=== PATIENT | male | born 1970 | race Caucasian/White ===

== ENCOUNTER 2022-05-05 00:14 | Observation (INO) | payer BC, SELFPAY ==
[2022-05-05] VITALS (9 sets, daily range): BP systolic 118–154; BP diastolic 76–96; PULSE 74–98; RESP 10–22; TEMP 36.4–37.3; O2SAT 95–100; BMI 27.4
--- NOTE | ~2022-05-05 | CT_ITS ---
EXAMINATION: CT abdomen pelvis wo con DATE: 05/05/2022 01:18 INDICATION: Left lower quadrant abdominal pain. TECHNIQUE: Computed tomography (CT) of the abdomen and pelvis was performed without intravenous contr ast. Automated exposure control and iterative reconstruction technique were employed. The dose-length product was 426.86 mGy-cm. COMPARISON: None. FINDINGS: The visualized portions of the lung bases demonstrate mild atelectasis. No pleural effusion . The heart size is normal. No pericardial effusion. There are coronary artery calcifications. The li payal and spleen are normal. There are changes of cholecystectomy. The pancreas, adrenal glands, and ri ght kidney are normal. There is a 3 mm stone in left kidney. There is a 2.1 cm mass in left kidney me asuring soft tissue attenuation. There is mild left hydronephrosis. There is a 2 mm stone in proximal left ureter. There are bilateral inguinal hernias containing fat. There are no dilated loops of smita l. The appendix is normal. There are no pathologically enlarged lymph nodes. There is no free intrape ritoneal fluid. There is mild lumbar spondylosis. IMPRESSION: 1. 2 mm stone in proximal left ureter with mild left hydronephrosis. 2. 2.1 cm left kidney mass, which may be a hemorrhagic cyst or neoplasm. Abdomen MRI or CT without an d with contrast is recommended. Reviewed, dictated and finalized at location A. L DEVELOPER IMPRESSION: 1. 2 mm stone in proximal left ureter with mild left hydronephrosis. 2. 2.1 cm left kidney mass, which may be a hemorrhagic cyst or neoplasm. Abdome n MRI or CT without and with contrast is recommended.
--- NOTE | ~2022-05-05 | XR_ITS ---
EXAMINATION: XR abdomen/kub 1V DATE: 05/05/2022 01:34 INDICATION: Kidney stone. TECHNIQUE: A supine view of the abdomen on 2 radiographs was obtained. COMPARISON: CT abdomen and pelvis 05/05/2022 FINDINGS: There are no dilated loops of bowel. Surgical clips in the right upper quadrant are likely from cholecystectomy. There are phleboliths in the pelvis. There is a 2 mm stone in left ureter at L3 -L4. IMPRESSION: 1. 2 mm stone in left ureter at L3-L4. Reviewed, dictated and finalized at location A. ET COMMISSIONER
--- NOTE | ~2022-05-05 | XR_ITS ---
EXAMINATION: XR retrograde pyelo w/stent LT DATE: 05/05/2022 09:48 INDICATION: Left ureteral stone. TECHNIQUE: 6 intraoperative fluoroscopic views of the abdomen and pelvis were obtained. I was not pre sent. Fluoroscopy time was 13 seconds. COMPARISON: CT abdomen and pelvis 05/05/22 FINDINGS: The left-sided retrograde pyelogram is unremarkable. There is a left internal ureteral sten t in expected position. IMPRESSION: 1. Left internal ureteral stent in expected position. Reviewed, dictated and finalized at location A. NICAL MGR
--- NOTE | 2022-05-05 00:15 | ED.ABDPAIN ---
HPI - Abdominal Pain General Chief Complaint: Abdominal Pain Stated Complaint: FLANK/ABD PAIN Source: RN notes reviewed History of Present Illness HPI narrative: Patient presents emergency department from home via EMS for abdominal pain. Patient states that pain began approximately 1 hour prior to arrival. States the pain began suddenly is located in the left side of the abdomen. Pain radiates around to the back is described as sharp and stabbing in nature. He denies any fevers or chills denies any nausea vomiting diarrhea. Denies any previous history of kidney stones. States he not take anything for the pain at home Related Data Allergies Allergy/AdvReac Type Severity Reaction Status Date / Time No Known Allergies Allergy Verified 05/22/20 14:40 Review of Systems Review of Systems: Gen.: Denies fevers or chills ENT: Denies congestion Respiratory: Denies shortness of breath or cough CV: Denies chest pain or palpitations GI: See HPI denies burning, urgency, frequency or hematuria Musculoskeletal: Denies back pain or muscle pain Neuro: Denies numbness, tingling, weakness or focal weakness Skin: Denies rash Except as documented, all other systems reviewed and negative [facility] Past Medical History Medical History (Updated 05/05/22 @ 02:37 by Marbin Cox DO) Asthma Family History Family History (System 05/22/20 @ 14:40 by Ciro Alvarez) Mother Family history of diabetes mellitus in first degree relative Hypertension Father Carcinoma of colon Family history of heart disease in male family member before age 55 Family history of lung cancer Family history of primary malignant neoplasm of liver Grandparent Family history of lung cancer Diabetes mellitus Family history of malignant neoplasm of brain Other Cerebrovascular accident Family history of cardiovascular disease Family history of throat cancer Social History Social History Smoking status: Current every day smoker Alcohol intake: never Exam Narrative: APPEARANCE: No acute distress, nontoxic, resting in bed HEENT: Normocephalic, atraumatic, OMM RESPIRATORY: No respiratory distress, clear to auscultation bilaterally with no rhonchi wheezing or rales CARDIOVASCULAR: RRR s murmur ABDOMINAL: Soft nondistended tender palpation left upper quadrant left lower quadrant no tenderness in right upper quadrant and right lower quadrant no rebound or guarding, left flank tenderness MUSCULOSKELETAl: Moves all extremities. No clubbing, cyanosis or edema. NEURO: Awake and alert. Following commands, speech normal, no focal deficits SKIN:: Warm, dry. Normal Color PSYCHIATRIC: Normal affect/mood Course Course Emergency Course: Patient continues to have pain we will give morphine Called and discussed with Dr. Rubin for urology presentation work-up. With patient's continued pain agrees with plan for admission and consult agrees with Sanjuanita Discussed with Dr. andrew agrees with admission Discussed with patient and family results of workup and diagnosis. Discussed need for admission. Patient and family understand and agree to current treatment plan Vital Signs Vital signs: Vital Signs Temperature 98.0 F 05/05/22 00:10 Respiratory Rate 18 05/05/22 00:10 Blood Pressure 145/76 H 05/05/22 00:10 Pulse Oximetry 100 05/05/22 00:10 Oxygen Delivery Room Air 05/05/22 00:10 Temperature 98.0 F 05/05/22 00:10 Respiratory Rate 18 05/05/22 00:10 Blood Pressure 145/76 H 05/05/22 00:10 Pulse Oximetry 100 05/05/22 00:10 Oxygen Delivery Room Air 05/05/22 00:10 MDM - Abdominal Pain MDM Narrative Medical decision making narrative: Patient presents for left-sided abdominal and flank pain cannot hour prior to arrival work-up UTI present kidney stone 2 mm on left side discussed with urology at this time will admit for pain control and IV antibiotics evaluation by urol
[2022-05-05] MEDS: KETOROLAC 30 MG/ML VIAL (*BKC) IV PUSH (00:21)
[2022-05-05] MEDS: SODIUM CHLORIDE 0.9% IV 1,000 ML 999 ML IV CONT (00:22)
[2022-05-05 00:47] LABS: Basophils Absolute Auto 0.1 K/mm3 (0.0-0.1); Basophils Percent Auto 0.8 % (0.2-1.2); Eosinophils Percent Auto 0.1 % (0-4.4); Hematocrit 43.4 % (42.0-52.0); Hemoglobin 15.2 g/dL (14.0-18.0); Immature Granulocyte Absolute 0.17 K/mm3 (0.00-0.031); Immature Granulocyte Percent A 1.8 % (0-0.5); Lymphocytes Absolute Auto 1.06 K/mm3 (0.9-3.2); Lymphocytes Percent Auto 11.5 % (18.3-44.2); Mean Corpuscular Hemoglobin 31.5 pg (26-34); Mean Platelet Volume 10.4 fl (7.4-10.4); Monocytes Absolute Auto 0.4 K/mm3 (0.1-0.6); Monocytes Percent Auto 4.7 % (2.6-8.5); Neutrophils Absolute Auto 7.5 K/mm3 (1.3-6.7); Neutrophils Percent Auto 81.1 % (45.5-73.1); Platelet Count Result 228 k/mm3 (150-375); Red Blood Count 4.82 M/mm3 (4.6-6.20); Red Cell Distribution Width 13.1 % (11.5-14.5); White Blood Count 9.2 K/mm3 (4.5-10.0)
[2022-05-05 00:58] LABS: Alanine Aminotransferase 43 U/L (6-50); Albumin Level 4.2 g/dL (3.5-5.1); Alkaline Phosphatase 76 U/L (38-126); Anion Gap 9 mmol/L (8-16); Aspartate Amino Transferase 30 U/L (17-59); Bilirubin,Total 0.8 mg/dL (0.2-1.3); Blood Urea Nitrogen 16 mg/dL (9-20); Calcium 8.5 mg/dL (8.4-10.2); Carbon Dioxide 24 mmol/L (22-30); Chloride 107 mmol/L (98-107); Estimated Glomerular Filt Rate > 60; Glucose 164 mg/dL (65-110); Lipase 25 U/L (23-300); Potassium 3.2 mmol/L (3.4-5.0); Sodium 140 mmol/L (137-145)
[2022-05-05] MEDS: TAMSULOSIN HCL 0.4 MG CAPSULE PO (01:15)
[2022-05-05 02:13] LABS: Add Urine Microscopic? YES; Appearance Urine Clear (Clear); Bilirubin Urine 1+ (Negative); Blood Urine 3+ (Negative); Color Urine Yellow (Yellow); Glucose Urine UA Negative (Negative); Ketones Urine Trace mg/dL (Negative); Leukocyte Esterase Ur Negative LEU/UL (Negative); Nitrate Urine Positive (Negative); Protein Urine 1+ mg/dL (Negative); Specific Grav Ur 1.025 (1.001-1.035)
[2022-05-05 02:23] LABS: Mucus Urine Rare /lpf; RBC Urine >75 /hpf (0-2); Squamous Epithelial Cell Urine Occasional /hpf (Few)
[2022-05-05] MEDS: MORPHINE SULFATE (*CRX) 4 MG/ML INJ IV PUSH ×3 (02:33→06:31)
[2022-05-05] MEDS: SODIUM CHLORIDE 0.9% IV 1,000 ML 125 ML IV CONT ×2 (02:53→03:55)
--- NOTE | 2022-05-05 03:32 | PM.IMHP ---
H&P: HPI History of Present Illness Date/Time: 05/05/22 03:32 Chief Complaint: Left-sided Abdominal pain Narrative: Patient is a 51-year-old male with past medical history recently diagnosed leukemia presents with left-sided abdominal pain. The pain was sudden onset as started an hour before reaching the hospital. He has not tried the for it. The pain is sharp in nature. He denies any history of kidney stones. He does not take any medications regularly. In the ED: CT abdomen consistent with left mid ureter 2 mm kidney stone with mild left hydroureter nephrosis. Dr. Rubin urology is considering ureteral stent considering the hydronephrosis, plan for at 9:00 a.m.. Patient to be admitted for observation for left-sided kidney stone and mild left hydroureteronephrosis. Review of Systems Review of Systems: Constitutional: No Fever, No Chills, No Night Sweats, No Fatigue, No Malaise ENT/Mouth: No Hearing Changes, No Ear Pain, No Nasal Congestion, No Sinus Pain, No Hoarseness, No sore throat, No Rhinorrhea, No Swallowing Difficulty Eyes: No Eye Pain, No Redness, No Vision Changes Cardiovascular: No Chest Pain, No Palpitations, No Dyspnea on Exertion, No Orthopnea, No Claudication, No Edema Respiratory: No Cough, No Sputum, No Wheezing, No Shortness of Breath Gastrointestinal: Endorses left-sided abdominal pain Genitourinary: Difficulty urinating Musculoskeletal: No Arthralgias, No Myalgias, No Joint Swelling, No Joint Stiffness, No Back Pain Skin: No Skin Lesions, No Pruritis, No Hair Changes Neuro: No Weakness, No Numbness, No Paresthesias, No Loss of Consciousness, No Syncope, No Dizziness, No Headache Psych: No Anxiety/Panic, No Depression, No Insomnia Heme: No Bruising, No Bleeding Lymph: No Adenopathy Endocrine: No Polyuria, No Polydipsia, No Temperature Intolerance [facility] Past Medical History Medical History (Updated 05/05/22 @ 03:41 by Lorie Gordon DO) Asthma Leukemia consultation Family History Family History Mother Family history of diabetes mellitus in first degree relative Hypertension Father Carcinoma of colon Family history of heart disease in male family member before age 55 Family history of lung cancer Family history of primary malignant neoplasm of liver Grandparent Family history of lung cancer Diabetes mellitus Family history of malignant neoplasm of brain Other Cerebrovascular accident Family history of cardiovascular disease Family history of throat cancer Social History Social History Smoking packs per day: 1.5 Smoking cigarettes per day: 30.0 Smoking status: Current every day smoker Alcohol intake: never Meds Home Medications and Allergies Allergies Allergy/AdvReac Type Severity Reaction Status Date / Time No Known Allergies Allergy Verified 05/22/20 14:40 Vital Signs Vital Signs - 24 hr 05/05/22 00:10 05/05/22 03:18 Temperature 36.7 C 37.1 C Pulse Rate 74 Respiratory Rate 18 18 Blood Pressure 145/76 H 134/76 Pulse Oximetry 100 100 Oxygen Delivery Room Air Exam Narrative: - GENERAL: Pleasant male in no acute distress. Well-nourished. - EYES: EOMI. Anicteric. - HENT: Moist mucous membranes. - LUNGS: Clear to auscultation bilaterally, no wheezing, rhonchi, or rales. - CARDIOVASCULAR: Regular rate and rhythm. No murmur. No JVD. - ABDOMEN: Soft,non-distended. Tender to deep palpation. - EXTREMITIES: No edema. Peripheral pulses 2+. Non-tender. - NEUROLOGIC: No focal neurological deficits. CN II-XII grossly intact. - PSYCHIATRIC: Awake, Alert and oriented x 3. Appropriate mood and affect. - SKIN: No rashes or lesions. Warm. - LYMPH: No cervical lymphadenopathy. H&P: Results Labs Labs: Short CBC 05/05/22 Range/Units 00:29 WBC 9.2 (4.5-10.0) K/mm3 Hgb 15.2 (14.0-18.0) g/dL Hct 43.4 (42.0-52.0)
[2022-05-05 03:37] LABS: SARS-CoV-2 RNA PCR Negative
--- NOTE | 2022-05-05 03:54 | ADMGEN ---
This patient, David Garcia, was admitted to Medical Room 346-01. Patient/family oriented to hospital policies and general routines including ID bracelet, bed and alarms, visiting hours, pain management, procedures, bathroom and other care routines, personal items, smoking policy, room service/diet, and visiting hours. Information on how to activate the Rapid Response Team has been discussed. Patient/Family are encouraged to report perceived risks to care and to ask questions if they do not understand what they are told or what they should do.
--- NOTE | 2022-05-05 04:23 | WPDANESEPP ---
Anes - Eval Pre Procedure Procedure: Cysto with stent placement Date/Time: 05/05/22 04:23 Surgeon: Scottie Preop Diagnosis: Left mid ureter 2 mm kidney stone, mild left hydroureteronephrosis Pre Op Diagnosis: kidney stone, uti Patient Data Age: 51 Gender: M Height: 1.7 m Weight: 79.5 kg Last Vital Signs Temp 97.6 F 05/05/22 03:53 Pulse 87 05/05/22 03:53 Resp 18 05/05/22 03:53 BP 130/90 05/05/22 03:53 Pulse Ox 97 05/05/22 03:53 O2 Del Method Room Air 05/05/22 04:00 Allergies Allergy/AdvReac Type Severity Reaction Status Date / Time No Known Allergies Allergy Verified 05/22/20 14:40 Home Medications Medication Instructions Recorded Confirmed Type No Home Medications 05/05/22 05/05/22 History Laboratory Tests 05/05/22 05/05/22 05/05/22 00:29 00:29 02:01 WBC 9.2 K/mm3 K/mm3 (4.5-10.0) RBC 4.82 M/mm3 M/mm3 (4.6-6.20) Hgb 15.2 g/dL g/dL (14.0-18.0) Hct 43.4 % % (42.0-52.0) MCV 90.0 fl fl (80-100) MCH 31.5 pg pg (26-34) MCHC 35.0 g/dl g/dl (32-36) RDW 13.1 % % (11.5-14.5) Plt Count 228 k/mm3 k/mm3 (150-375) MPV 10.4 fl fl (7.4-10.4) Immature Gran % (Auto) 1.8 % H % (0-0.5) Neut % (Auto) 81.1 % H % (45.5-73.1) Lymph % (Auto) 11.5 % L % (18.3-44.2) [place] % (Auto) 4.7 % % (2.6-8.5) Eos % (Auto) 0.1 % % (0-4.4) Baso % (Auto) 0.8 % % (0.2-1.2) Lymph # (Auto) 1.06 K/mm3 K/mm3 (0.9-3.2) [place] # (Auto) 0.4 K/mm3 K/mm3 (0.1-0.6) Eos # (Auto) 0.0 K/mm3 K/mm3 (0-0.3) Baso # (Auto) 0.1 K/mm3 K/mm3 (0.0-0.1) Abs Immat Gran (auto) 0.17 K/mm3 H K/mm3 (0.00-0.031) Absolute Neuts (auto) 7.5 K/mm3 H K/mm3 (1.3-6.7) Absolute Nucleated RBC 0.0 K/mm3 K/mm3 (0.0-0.012) Nucleated RBC % 0.0 % % (0.0-0.2) Sodium 140 mmol/L mmol/L (137-145) Potassium 3.2 mmol/L L mmol/L (3.4-5.0) Chloride 107 mmol/L mmol/L (98-107) Carbon Dioxide 24 mmol/L mmol/L (22-30) Anion Gap 9 mmol/L mmol/L (8-16) BUN 16 mg/dL mg/dL (9-20) Creatinine 0.90 mg/dL mg/dL (0.7-1.3) Estim Creat Clear Calc Not Reportable Estimated GFR > 60 (59 - ) Glucose 164 mg/dL H mg/dL (65-110) Calcium 8.5 mg/dL mg/dL (8.4-10.2) Total Bilirubin 0.8 mg/dL mg/dL (0.2-1.3) AST 30 U/L U/L (17-59) ALT 43 U/L U/L (6-50) Alkaline Phosphatase 76 U/L U/L (38-126) Total Protein 7.0 g/dL g/dL (6.3-8.2) Albumin 4.2 g/dL g/dL (3.5-5.1) Lipase 25 U/L U/L (23-300) Urine Color Yellow (Yellow) Urine Appearance Clear (Clear) Urine pH 8.0 (5.0-9.0) Ur Specific [place] 1.025 (1.001-1.035) Urine Protein 1+ mg/dL H mg/dL (Negative) Urine Glucose (UA) Negative mg/dL mg/dL (Negative) Urine Ketones Trace mg/dL mg/dL (Negative) Ur Blood (Man) 3+ H (Negative) Urine Nitrate Positive H (Negative) Urine Bilirubin 1+ H (Negative) Urine Urobilinogen 1.0 mg/dL mg/dL (<2.0) Leukocyte Esterase Rfl Negative CONNIE/UL CONNIE/UL (Negative) Urine RBC >75 /hpf H /hpf (0-2) Urine WBC 4-6 /hpf H /hpf Ur Squamous Epith Cells Occasional /hpf /hpf (Few) Urine Mucus Rare /lpf /lpf SARS-CoV-2 RNA (RT-PCR) 05/05/22 02:52 WBC RBC Hgb Hct MCV MCH MCHC RDW Plt Count MPV Immature Gran % (Auto) Neut % (Auto) Lymph % (Auto) [place] % (Auto) Eos % (Auto) Baso % (Auto) Lymph # (Auto) [place] # (Auto)
--- NOTE | 2022-05-05 09:02 | WPDURCON ---
Assessment and Plan Assessment and plan (1) Kidney stone on left side: Code(s): N20.0 - Calculus of kidney Status: Acute Plan 51M with left 2mm proximal ureteral stone and nitrite positive urine though leuk esterace negative with normal white count, normal vitals, and afebrile. Plan today for left ureteral stent placement, possible left ureteroscopy and stone extraction. Discussed risks and benefits (in cluding pain, bleeding ,infection, damage to surrounding structures, need for second procedure for stone extraction) with patient, and he endorses understanding and willing to proceed. Urology Consult Note HPI Date Seen: 05/05/22 Requesting Physician: Cordell Gordon DO Primary Care Provider: FITNESS DIRECTOR PHYSICIAN Consult Narrative Narrative: David Garcia is a 51 year old male without history of previous nephrolithiasis presenting with left flank pain found to have a 2mm proximal ureteral stone along with UA with nitrite positive urine, though leuk est negative. WBC 9, Cr WNL, but due to pain and nitrite positive urine patient admitted for pain control and planning for stent. Denies dysuria, fevers. Pain well controlled during admission. [facility] Past Medical History Medical History Asthma Leukemia consultation Overweight (BMI 25.0-29.9) Smoker Surgical History Surgical History (Updated 05/05/22 @ 04:27 by Garry Stevenson CRNA) H/O hernia repair S/P cholecystectomy Family History Family History Mother Family history of diabetes mellitus in first degree relative Hypertension Father Carcinoma of colon Family history of heart disease in male family member before age 55 Family history of lung cancer Family history of primary malignant neoplasm of liver Grandparent Family history of lung cancer Diabetes mellitus Family history of malignant neoplasm of brain Other Cerebrovascular accident Family history of cardiovascular disease Family history of throat cancer Social History Social History Smoking packs per day: 1.5 Smoking cigarettes per day: 30.0 Smoking status: Current every day smoker Alcohol intake: never Substance use: never Lack of Transportation: No Lack of Food: Never True Current Housing: I Have Housing Concerned About Future Housing: No Difficulty Paying Gas/Electric Bills: No Difficulty Paying for Meds: No Currently Unemployed: No Education: Trade/Vocational Certificate Difficulty w/ Childcare or Family Care: No Spiritual care concerns: No Meds Home Medications and Allergies Home Medications Medication Instructions Recorded Confirmed Type No Home Medications 05/05/22 05/05/22 History Allergies Allergy/AdvReac Type Severity Reaction Status Date / Time No Known Allergies Allergy Verified 05/22/20 14:40 Vital Signs Vital Signs - 24 hr 05/05/22 00:10 05/05/22 03:18 05/05/22 04:00 Temperature 36.7 C 37.1 C Pulse Rate 74 Respiratory Rate 18 18 Blood Pressure 145/76 H 134/76 Pulse Oximetry 100 100 Oxygen Delivery Room Air Room Air 05/05/22 03:53 05/05/22 05:34 Temperature 36.4 C 36.6 C Pulse Rate 87 90 Respiratory Rate 18 22 H Blood Pressure 130/90 154/88 H Pulse Oximetry 97 98 Oxygen Delivery Exam Const: General: comfortable HENMT: Other: wnl Resp: Effort & Inspection: normal respiratory effort Cardio: Other: Appears well pefused GI: Other: Non distended Skin: Other: Wnl Neuro: Other: In tact Results Labs 05/05/22 00:29 05/05/22 00:29 Labs: Short CBC 05/05/22 Range/Units 00:29 WBC 9.2 (4.5-10.0) K/mm3 Hgb 15.2 (14.0-18.0) g/dL Hct 43.4 (42.0-52.0) % Plt Count 228 (150-375) k/mm3 BMP 05/05/22 00:29 Sodium 140 Potassium 3.2 L Chloride 107 Carbon Dioxide 24 BUN 16 Creatin
--- NOTE | 2022-05-05 09:13 | WPDANESEPPF ---
Anes - Initial Pre Proc Eval Procedure: Operation Date: 05/05/22 09:00 Proposed Procedures p Cysto, RPG, Stone Ext, Stent Placement(Left) - Mckenna Rubin MD Date/Time: 05/05/22 09:13 Surgeon: Cordell Gordon DO Pre Op Diagnosis: kidney stone, uti Patient Data Age: 51 Gender: M Height: 1.7 m Weight: 79.5 kg Last Vital Signs Temp 36.6 C 05/05/22 05:34 Pulse 90 05/05/22 05:34 Resp 22 H 05/05/22 05:34 BP 154/88 H 05/05/22 05:34 Pulse Ox 98 05/05/22 05:34 O2 Del Method Room Air 05/05/22 04:00 Allergies Allergy/AdvReac Type Severity Reaction Status Date / Time No Known Allergies Allergy Verified 05/22/20 14:40 Home Medications Medication Instructions Recorded Confirmed Type No Home Medications 05/05/22 05/05/22 History Laboratory Tests 05/05/22 05/05/22 05/05/22 00:29 00:29 02:01 WBC 9.2 K/mm3 K/mm3 (4.5-10.0) RBC 4.82 M/mm3 M/mm3 (4.6-6.20) Hgb 15.2 g/dL g/dL (14.0-18.0) Hct 43.4 % % (42.0-52.0) MCV 90.0 fl fl (80-100) MCH 31.5 pg pg (26-34) MCHC 35.0 g/dl g/dl (32-36) RDW 13.1 % % (11.5-14.5) Plt Count 228 k/mm3 k/mm3 (150-375) MPV 10.4 fl fl (7.4-10.4) Immature Gran % (Auto) 1.8 % H % (0-0.5) Neut % (Auto) 81.1 % H % (45.5-73.1) Lymph % (Auto) 11.5 % L % (18.3-44.2) [place] % (Auto) 4.7 % % (2.6-8.5) Eos % (Auto) 0.1 % % (0-4.4) Baso % (Auto) 0.8 % % (0.2-1.2) Lymph # (Auto) 1.06 K/mm3 K/mm3 (0.9-3.2) [place] # (Auto) 0.4 K/mm3 K/mm3 (0.1-0.6) Eos # (Auto) 0.0 K/mm3 K/mm3 (0-0.3) Baso # (Auto) 0.1 K/mm3 K/mm3 (0.0-0.1) Abs Immat Gran (auto) 0.17 K/mm3 H K/mm3 (0.00-0.031) Absolute Neuts (auto) 7.5 K/mm3 H K/mm3 (1.3-6.7) Absolute Nucleated RBC 0.0 K/mm3 K/mm3 (0.0-0.012) Nucleated RBC % 0.0 % % (0.0-0.2) Sodium 140 mmol/L mmol/L (137-145) Potassium 3.2 mmol/L L mmol/L (3.4-5.0) Chloride 107 mmol/L mmol/L (98-107) Carbon Dioxide 24 mmol/L mmol/L (22-30) Anion Gap 9 mmol/L mmol/L (8-16) BUN 16 mg/dL mg/dL (9-20) Creatinine 0.90 mg/dL mg/dL (0.7-1.3) Estim Creat Clear Calc Not Reportable Estimated GFR > 60 (59 - ) Glucose 164 mg/dL H mg/dL (65-110) Calcium 8.5 mg/dL mg/dL (8.4-10.2) Total Bilirubin 0.8 mg/dL mg/dL (0.2-1.3) AST 30 U/L U/L (17-59) ALT 43 U/L U/L (6-50) Alkaline Phosphatase 76 U/L U/L (38-126) Total Protein 7.0 g/dL g/dL (6.3-8.2) Albumin 4.2 g/dL g/dL (3.5-5.1) Lipase 25 U/L U/L (23-300) Urine Color Yellow (Yellow) Urine Appearance Clear (Clear) Urine pH 8.0 (5.0-9.0) Ur Specific [place] 1.025 (1.001-1.035) Urine Protein 1+ mg/dL H mg/dL (Negative) Urine Glucose (UA) Negative mg/dL mg/dL (Negative) Urine Ketones Trace mg/dL mg/dL (Negative) Ur Blood (Man) 3+ H (Negative) Urine Nitrate Positive H (Negative) Urine Bilirubin 1+ H (Negative) Urine Urobilinogen 1.0 mg/dL mg/dL (<2.0) Leukocyte Esterase Rfl Negative CONNIE/UL CONNIE/UL (Negative) Urine RBC >75 /hpf H /hpf (0-2) Urine WBC 4-6 /hpf H /hpf Ur Squamous Epith Cells Occasional /hpf /hpf (Few) Urine Mucus Rare /lpf /lpf SARS-CoV-2 RNA (RT-PCR) 05/05/22 02:52 WBC RBC Hgb Hct MCV MCH MCHC RDW Plt Count MPV Immature Gran % (Auto) Neut % (Auto) Lymph % (Auto) [place] % (Auto) Eos % (Auto) Baso % (Auto)
--- NOTE | 2022-05-05 09:20 | WPDHPUPDATE1 ---
History and Physical Update Update Date/Time: 05/05/22 09:20 History and Physical has been reviewed, including an updated exam of the patient. There are NO changes in the patient's condition. Risks, benefits, and alternatives have been discussed and questions answered. Patient agrees to proceed with procedure.
[2022-05-05] MEDS: LIDOCAINE HCL 2% GEL UROJET 10 ML PKG MUCOUS MEM (09:39)
[2022-05-05] MEDS: LACTATED RINGERS 1,000 ML 30 ML IV CONT (09:45)
--- NOTE | 2022-05-05 09:55 | W.PM.PROC2 ---
Procedure Note - Detailed Date of Procedure 05/05/22 Pre-op Diagnosis Left ureteral stone, UTI Post-op Diagnosis Same Procedure Performed Cystoscopy, left ureteral stent placement, retrograde pyelogram, intraoperative interpretation of fluoroscopy (<60 min) Surgeon Mckenna uRbin MD Anesthesia General Indications 51M with left obstructing possibly infected ureteral stone. Risks and benefits discussed about procedure, patient endorses understanding and elects to proceed. Findings Stent placed; urine w/debris passed from behind stone once wire was placed. Description of Procedure The patient was brought back to the operating theatre. After the induction of excellent anesthesia, a surgical time out was performed, and we verified the patient identification, site, laterality, and procedure. Patient received pre-operative antibiotics. The patient was placed in the dorsal lithotomy position. The genital area was prepped and draped in the usual, sterile fashion. We introduced a 22 Fr rigid cystoscope easily into the bladder. The urethra was noted to be unremarkable with mild trilobar hyperplasia and a high bladder neck. The bladder was emptied. The scope was re-inserted. Cystoscopy did not reveal any tumors, masses, stones, trabeculations, or diverticuli. The left ureteral orifice was identified and cannulated with 5 Fr open ended catheter. We did shoot a retrograde pyelogram for a road map to the kidney. A [employer] guidewire was placed into the catheter and advanced to the renal pelvis using fluoroscopy. After placement of the wire up to the kidney, debris filled urine was noted to be emanating from the ureteral orifice. Therefore, a 4.8F multilength double-J stent was then placed under direct vision with a curl observed in the kidney and in the bladder. We did not leave a string on the stent. The bladder was emptied. The patient was then awoken without event, transferred to the recovery cart and transported to the PACU in good condition. Implants Left 4.8 double-J multilength ureteral stent Estimated Blood Loss 0 Urine Output 50 Complications None Disposition Floor (Recommend continued IV antibiotics until cultures return. Recommend 14 days total of antibiotics to treat infection. Will plan for outpatient definitive stone treatment after infection has been treated. )
--- NOTE | 2022-05-05 11:30 | PM.DS ---
DS: Admitting Diagnosis Discharge Date 05/05/21 1130 Admitting Diagnosis acute renal caliculi with associated left sided hydroureter and hydronephrosis DS: Discharge Diagnosis Discharge Diagnosis (1) Kidney stone on left side: Code(s): N20.0 - Calculus of kidney Status: Acute (2) Acute UTI: Code(s): N39.0 - Urinary tract infection, site not specified Status: Acute (3) Tobacco dependence: Code(s): F17.200 - Nicotine dependence, unspecified, uncomplicated Status: Acute Plan # left ureter nephrolithiasis -[address] scan -urology consulted Dr. Rubin, patient is NPO for surgery at 9:00 a.m. -antibiotics: Continue Rocephin -pain control: Tylenol, morphine -Zofran for nausea -IV fluids continue normal sinus with cc per hour -Stent placed -Levaquin for 14 days #Acute UTI -see above # nicotine dependence -patient smokes 1.5 pack per day -nicotine patch ordered Diet: NPO for surgery DVT prophylaxis: Ambulatory Code status: Full code Disposition: Observation likely home 1-2 days DS: Summary Hospital Course Hospital Course: patient is a 51-year-old male with a past medical history of leukemia who presented with left-sided abdominal pain. CT of the abdomen and pelvis showed a 2 mm kidney stone in the left ureter causing hydroureter and nephrosis. Urology was consulted and stent was placed. UA was infectious appearing and Urology reports turbid drainage with debris. Currently patient feels okay and is wanting to be discharged. He currently denies any chest pain, shortness a breath, nausea, vomiting, diarrhea, constipation, weakness or fatigue. Patient will need to follow up with urology in about 2 weeks. Patient is anxious for discharge and is wanting to go home. Talked with Urology that was ok with going home this afternoon if he remains stable. Will recollect a UA with culture, and will follow from here. Currently patient is stable for discharge per labs and vital signs. Education has been given and patient verbalized understanding. Status at Discharge Functional status at discharge: independent ambulation Overall status at discharge: patient is progressing back to baseline Time Spent with Patient Time attestation: Total time spent providing and/or coordinating discharge services: 39 minutes Time spent: Greater than 30 minutes Specific discharge activities: Diagnostic testing, chart review, developing a treatment plan, education, care coordination documentation, physical exam, result review Exam Narrative: - GENERAL: Pleasant male in no acute distress. Well-nourished. - EYES: EOMI. Anicteric. - HENT: Moist mucous membranes. - LUNGS: Clear to auscultation bilaterally, no wheezing, rhonchi, or rales. - CARDIOVASCULAR: Regular rate and rhythm. No murmur. No JVD. - ABDOMEN: Soft,non-distended. Tender to deep palpation. - EXTREMITIES: No edema. Peripheral pulses 2+. Non-tender. - NEUROLOGIC: No focal neurological deficits. CN II-XII grossly intact. - PSYCHIATRIC: Awake, Alert and oriented x 3. Appropriate mood and affect. - SKIN: No rashes or lesions. Warm. - LYMPH: No cervical lymphadenopathy. DS: Data Data Completed and Pending Labs on day of discharge: Labs from last 24 hours 05/05/22 05/05/22 05/05/22 02:52 02:01 00:29 WBC RBC Hgb Hct MCV MCH MCHC RDW Plt Count MPV Immature Gran % (Auto) Neut % (Auto) Lymph % (Auto) [place] % (Auto) Eos % (Auto) Baso % (Auto) Lymph # (Auto) [place] # (Auto) Eos # (Auto) Baso # (Auto) Abs Immat Gran (auto) Absolute Neuts (auto) Absolute Nucleated RBC Nucleated RBC % Sodium 140 Potassium 3.2 L Chloride 107 Carbon Dioxide 24 Anion Gap 9 BUN 16 Creatinine 0.90 Estim Creat Clear Calc Not Reportable Estimated GFR > 60 Glucose 164 H Calcium 8.5 Total Bilirubin 0.8 AST 30 ALT 43 Alkaline Phosphata
[2022-05-05] MEDS: NICOTINE (*PBKC) 21 MG PATCH 1 PATCH TRANSDERM (13:24)
== END 2022-05-05 16:53 | disposition home or self-care (01) ==
LOC: ANHED 02:37 → ANH3MED 03:20
PROVIDERS: Urology; Admitting Provider Student in an Organized Health Care Education/Training Program; Emergency Provider Emergency Medicine; Visit Provider Chiropractor
PROC: (CPT 52352; principal; 2022-05-05 09:00)
DX: N13.2 Hydronephrosis with renal and ureteral calculous obstruction (principal); N39.0 Urinary tract infection, site not specified; R10.9 Unspecified abdominal pain; J45.909 Unspecified asthma, uncomplicated; Z20.822 Contact with and (suspected) exposure to COVID-19; F17.210 Nicotine dependence, cigarettes, uncomplicated; Z82.49 Family history of ischemic heart disease and other diseases of the circulatory system; E66.3 Overweight; Z68.27 Body mass index [BMI] 27.0-27.9, adult
CPT/HCPCS: 52332; 36415; 74018; 74176; 74420; 80053; 81001; 83690; 85025; 87086; 87088; 96361; 96365; 96375; 96376; 99285; A9270; C1758; C1769; C2617; G0379; J0696; J1100; J1885; J2001; J2250; J2270; J2405; J2704; J3010; J7030; J7120; U0003; U0005

== ENCOUNTER 2023-09-20 09:06 | Emergency (ER) | payer BC, SELFPAY ==
[2023-09-20] VITALS (15 sets, daily range): BP systolic 115–134; BP diastolic 81–107; PULSE 76–101; RESP 12–19; TEMP 36.6; O2SAT 96–100
--- NOTE | ~2023-09-20 | XR_ITS ---
EXAMINATION: XR ankle LT min 3V DATE: 09/20/2023 10:08 INDICATION: Left ankle medial pain. TECHNIQUE: 4 views of left ankle were obtained. COMPARISON: None. FINDINGS: There is an oblique fracture distal fibula with medial aspect of the fracture line at the l evel of the tibial plafond. The distal fracture fragment demonstrates 2 mm posterior displacement. Th ere is mild widening of the medial ankle mortise. There is heterotopic ossification in the area of de ltoid ligament. There is mild osteoarthritis of talonavicular joint. There is an enthesophyte of post erior aspect of calcaneal tuberosity. Ankle soft tissue swelling is noted. IMPRESSION: 1. Oblique fracture of distal fibula. 2. Deltoid ligament sprain. Reviewed, dictated and finalized at location A.
--- NOTE | ~2023-09-20 | XR_ITS ---
EXAMINATION: XR chest 2V DATE: 09/20/2023 10:08 INDICATION: Cough. TECHNIQUE: Frontal and lateral views of the chest were obtained. COMPARISON: Chest 2 views 01/29/2012 FINDINGS: There is no pneumonia, pleural effusion, or pneumothorax. The heart size is normal. There a re surgical clips in the abdomen. IMPRESSION: 1. No acute cardiopulmonary disease. Reviewed, dictated and finalized at location A.
[2023-09-20] MEDS: SODIUM CHLORIDE 0.9% IV 1,000 ML 999 ML IV CONT (09:49)
[2023-09-20] MEDS: oxyCODONE/ACETAMINOPHEN (*CRX) 5-325 MG TABLET 1 TABLET PO (09:50)
[2023-09-20 09:56] LABS: Basophils Absolute Auto 0.1 K/mm3 (0.0-0.1); Basophils Percent Auto 0.8 % (0.2-1.2); Eosinophils Absolute Auto 0.1 K/mm3 (0-0.3); Hemoglobin 15.7 g/dL (14.0-18.0); Immature Granulocyte Absolute 0.08 K/mm3 (0.00-0.031); Immature Granulocyte Percent A 1.3 % (0-0.5); Lymphocytes Absolute Auto 1.17 K/mm3 (0.9-3.2); Lymphocytes Percent Auto 19.3 % (18.3-44.2); Mean Corpuscular HGB Conc 33.4 g/dl (32-36); Mean Corpuscular Hemoglobin 31.4 pg (26-34); Mean Platelet Volume 10.3 fl (7.4-10.4); Monocytes Absolute Auto 0.8 K/mm3 (0.1-0.6); Monocytes Percent Auto 12.7 % (2.6-8.5); Neutrophils Absolute Auto 3.9 K/mm3 (1.3-6.7); Neutrophils Percent Auto 63.9 % (45.5-73.1); Platelet Count Result 173 k/mm3 (150-375); Red Cell Distribution Width 13.4 % (11.5-14.5); White Blood Count 6.1 K/mm3 (4.5-10.0)
--- NOTE | 2023-09-20 10:06 | ED.SYNCOPE ---
HPI - Syncope General Chief Complaint: Syncope Stated Complaint: syncope from coughing, ankle injury Time Seen by Provider: 09/20/23 09:12 History of Present Illness HPI narrative: This is a 53-year-old male, with reported history of renal cell carcinoma, reportedly resolved status post right-sided nephrectomy without need for additional chemotherapy or radiation, who presents emergency department complaining of left ankle pain after a syncopal episode. The patient states he was seated on a barstool at home, when he began coughing. He states he coughed to the point that became lightheaded and lost consciousness. He does not believe he hit his head though is complaining of left ankle pain, rated 7/10 and described as dull. He denies preceding chest pain, palpitations or shortness of breath. He denies the same symptoms now. He denies bleeding, nausea/vomiting, diarrhea, fevers or chills and has no other complaints at this time. Related Data Allergies Allergy/AdvReac Type Severity Reaction Status Date / Time No Known Allergies Allergy Verified 09/20/23 09:26 Review of Systems Review of Systems: All systems reviewed & are unremarkable except as noted in HPI and below PMFSH Past Medical History Medical History Asthma Leukemia consultation Overweight (BMI 25.0-29.9) Smoker Surgical History Surgical History H/O hernia repair History of nephrectomy S/P cholecystectomy Family History Family History Mother Family history of diabetes mellitus in first degree relative Hypertension Father Carcinoma of colon Family history of heart disease in male family member before age 55 Family history of lung cancer Family history of primary malignant neoplasm of liver Grandparent Family history of lung cancer Diabetes mellitus Family history of malignant neoplasm of brain Other Cerebrovascular accident Family history of cardiovascular disease Family history of throat cancer Social History Social History Smoking packs per day: 1.5 Smoking cigarettes per day: 30.0 Smoking status: Current every day smoker Alcohol intake: never Substance use: never Lack of Transportation: No Lack of Food: Never True Current Housing: I Have Housing Concerned About Future Housing: No Difficulty Paying Gas/Electric Bills: No Difficulty Paying for Meds: No Currently Unemployed: No Education: Trade/Vocational Certificate Difficulty w/ Childcare or Family Care: No Spiritual care concerns: No Exam Narrative: GENERAL: Well-developed, well-nourished, and in no acute distress. HEAD: Normocephalic, atraumatic. EYES: PERRLA and EOMI. ENT: Nares clear, no rhinorrhea or epistaxis. Mucous membranes moist. Oropharynx without tonsillar hypertrophy exudate or other lesions. CHEST: Clear to auscultation. No respiratory distress. No wheezes rales or rhonchi HEART: Regular rate and rhythm. No murmur heard. Normal peripheral pulses. ABDOMEN: Soft, nontender, nondistended, normal active bowel sounds. EXTREMITIES: Left ankle medial and lateral swelling. Tender to palpation at the lateral and medial malleoli. Range of motion of the left ankle limited by pain. Otherwise normal range of motion of all extremities. No edema. SKIN: Warm, dry, no rash. NEURO: Alert and oriented x3. No focal deficit. Moving all 4 limbs spontaneously PSYCH: Normal mood and affect. Course Course Emergency Course: 11:21 - Age adjusted D-dimer negative. 11:45 - Chemistries delayed due to technical difficulties. Chemistries unremarkable. CBC unremarkable. Age adjusted D-dimer negative. Chest x-ray unremarkable. While monitoring, there have been no noted arrhythmias. X-ray of the ankle demonstrates a lateral malleolar fracture with minimal displacement. [place] [facility] staff placed a
[2023-09-20 10:55] LABS: D Dimer 0.74 ug/mL (<0.48)
[2023-09-20 11:46] LABS: Alanine Aminotransferase 26 U/L (6-50); Albumin Level 4.2 g/dL (3.5-5.1); Alkaline Phosphatase 78 U/L (38-126); Anion Gap 7 mmol/L (4-12); Aspartate Amino Transferase 27 U/L (17-59); Bilirubin,Total 0.5 mg/dL (0.2-1.3); Blood Urea Nitrogen 20 mg/dL (9-20); Carbon Dioxide 26 mmol/L (22-30); Chloride 105 mmol/L (98-107); Estimated CRCL calculation 56 ml/min; Estimated Glomerular Filt Rate 58; Glucose 113 mg/dL (65-110); Magnesium 1.9 mg/dL (1.6-2.3); Potassium 3.9 mmol/L (3.4-5.0); Sodium 138 mmol/L (137-145)
== END 2023-09-20 12:15 | disposition home or self-care (01) ==
PROVIDERS: Emergency Provider Preventive Medicine Aerospace Medicine; PCP Physician Assistant
DX: S82.62XA Displaced fracture of lateral malleolus of left fibula, initial encounter for closed fracture (principal); R55 Syncope and collapse; F17.210 Nicotine dependence, cigarettes, uncomplicated; J45.909 Unspecified asthma, uncomplicated; W07.XXXA Fall from chair, initial encounter
CPT/HCPCS: 36415; 71046; 73610; 80053; 83735; 85025; 85380; 96360; 99284; A9270; J7030

== ENCOUNTER 2023-09-22 10:31 | Emergency (ER) | payer BC, SELFPAY ==
--- NOTE | ~2023-09-22 | XR_ITS ---
EXAMINATION: XR ankle LT min 3V DATE: 09/22/2023 11:55 INDICATION: Left fibula fracture. TECHNIQUE: 4 views of left ankle were obtained. COMPARISON: Left ankle radiographs 09/20/2023 FINDINGS: There is an oblique fracture of distal fibula with medial aspect of the fracture line at th e level of the tibial plafond. The distal fracture fragment demonstrates 2 mm posterior displacement. There is widening of the medial ankle mortise. There is chronic heterotopic ossification distal and lateral to medial malleolus. There is mild osteoarthritis of talonavicular joint. There is an entheso phyte at the posterior aspect of calcaneal tuberosity. Cast material is noted. IMPRESSION: 1. Oblique fracture of distal fibula. 2. Deltoid ligament sprain. Reviewed, dictated and finalized at location A.
[2023-09-22 10:53] VITALS: BP 123/91; PULSE 94; RESP 18; TEMP 36.6; O2SAT 98
--- NOTE | 2023-09-22 12:08 | ED.GENADULT ---
HPI - General Adult General Chief complaint: Extremity Injury, Lower Stated complaint: left ankle pain Time Seen by Provider: 09/22/23 11:32 History of Present Illness HPI narrative: David Garcia is a 53 y/o male who presents with reports of presenting here Friday 3 days ago for a fall/ left ankle fracture he was splinted and given Follow up with Dr. Berkowitz. He states that he has a follow up appointment with Dr. Berkowitz tomorrow but he states that he won't take his insurance and he called his insurance company and was given a few to follow and those too won't see him based on his insurance He states that he is having some more pain to his ankle but states he is not here for pain meds/ he took his Pain meds RISK LEAD Related Data Home Medications Medication Instructions Recorded Confirmed aspirin 81 mg chewable tablet 09/22/23 09/22/23 atenolol 25 mg tablet mg 09/22/23 cyanocobalamin (vitamin B-12) mcg PO 09/22/23 1,000 mcg capsule ergocalciferol (vitamin D2) 1,250 09/22/23 mcg (50,000 unit) capsule losartan 25 mg tablet mg 09/22/23 metformin 500 mg tablet,extended mg PO 09/22/23 release 24 hr rosuvastatin 20 mg tablet mg 09/22/23 Allergies Allergy/AdvReac Type Severity Reaction Status Date / Time No Known Allergies Allergy Verified 09/22/23 11:42 Review of Systems Review of Systems: All systems reviewed & are unremarkable except as noted in HPI and below PMFSH Past Medical History Medical History Asthma Leukemia consultation Overweight (BMI 25.0-29.9) Smoker Surgical History Surgical History H/O hernia repair History of nephrectomy S/P cholecystectomy Family History Family History Mother Family history of diabetes mellitus in first degree relative Hypertension Father Carcinoma of colon Family history of heart disease in male family member before age 55 Family history of lung cancer Family history of primary malignant neoplasm of liver Grandparent Family history of lung cancer Diabetes mellitus Family history of malignant neoplasm of brain Other Cerebrovascular accident Family history of cardiovascular disease Family history of throat cancer Social History Social History Smoking packs per day: 1.5 Smoking cigarettes per day: 30.0 Smoking status: Current every day smoker Alcohol intake: never Substance use: never Lack of Transportation: No Lack of Food: Never True Current Housing: I Have Housing Concerned About Future Housing: No Difficulty Paying Gas/Electric Bills: No Difficulty Paying for Meds: No Currently Unemployed: No Education: Trade/Vocational Certificate Difficulty w/ Childcare or Family Care: No Spiritual care concerns: No Exam Narrative: GENERAL: Well-appearing, well-nourished, and in no acute distress. HEAD: Normocephalic, atraumatic. EYES: PERRLA and EOMI. ENT: Nares clear, no rhinorrhea or epistaxis. Mucous membranes moist. Oropharynx without tonsillar hypertrophy exudate or other lesions. NECK: Supple. No adenopathy or masses. No carotid bruits or JVD CHEST: Clear to auscultation. No respiratory distress. No wheezes rales or rhonchi HEART: Regular rate and rhythm. No murmur heard. Normal peripheral pulses. ABDOMEN: Soft, nontender, nondistended, normal active bowel sounds. EXTREMITIES: Normal range of motion. No edema. SKIN: Warm, dry, no rash. NEURO: No focal deficits. Alert and oriented x3. PSYCH: Normal mood and affect. Course Vital Signs Vital signs: Vital Signs Temperature 36.6 C 09/22/23 10:53 Pulse Rate 94 09/22/23 10:53 Respiratory Rate 18 09/22/23 10:53 Blood Pressure 123/91 H 09/22/23 10:53 Pulse Oximetry 98 09/22/23 10:53 Oxygen Delivery Room Air 09/22/23 10:53 Temperature 36.6 C 09/22/23 10:53 Pulse
--- NOTE | 2023-09-22 18:19 | PCCCNOTE ---
1200 CC was called to come talk to pt regarding his follow up appointment for his FX ankle. Pt called for an appointment after his visit here on the , office said they would see him, but he would have to pay out of pocket because his insurance is out of network. I called the office and he does have an appointment tomorrow at Dr. Berkowitz's office. He said he was still going to go and pay the out of pocket fee. I offered to help him call other orthopedic doctors in his network, he said he could do that. I also recommended he contact his primary care doctor to see if they could get him an ortho referral within network. He said he was going to try that today. He didn't have anymore questions or concerns to discuss. He verbalized understanding of what information I gave him.
== END 2023-09-22 13:00 | disposition home or self-care (01) ==
PROVIDERS: Emergency Provider Nurse Practitioner Family; PCP Physician Assistant
DX: S82.832D Other fracture of upper and lower end of left fibula, subsequent encounter for closed fracture with routine healing (principal); S93.422D Sprain of deltoid ligament of left ankle, subsequent encounter; X58.XXXD Exposure to other specified factors, subsequent encounter
CPT/HCPCS: 73610; 99283